=== PATIENT | female | born 1960 | race Two or more races ===

== ENCOUNTER 2024-11-02 11:30 | Emergency (ER) | payer BC, OTHER ==
[2024-11-02 11:41] VITALS: BP 129/70; PULSE 78; RESP 19; TEMP 98.2; BMI 38.7
[2024-11-02] MEDS ORDERED: METHOCARBAMOL 500 MG TABLET ONE (13:26)
[2024-11-02] MEDS ORDERED: ACETAMINOPHEN 500 MG TABLET (FP) ONE (13:26)
[2024-11-02] MEDS ORDERED: LIDOCAINE 5% TOPICAL PATCH ONE (13:28)
[2024-11-02] MEDS: LIDOCAINE 5% TOPICAL PATCH TP ONE (13:33)
[2024-11-02] MEDS: ACETAMINOPHEN 500 MG TABLET (FP) PO ONE (13:33)
[2024-11-02] MEDS: METHOCARBAMOL 500 MG TABLET PO ONE (13:33)
[2024-11-02 13:38] LABS: EPI CELLS 4 /uL (0-25.1); HYALINE CASTS 0 /uL (0-3.1); URINE BACTERIA 1 /uL (0-1359); URINE BILIRUBIN NEGATIVE (NEGATIVE); URINE COLOR YELLOW; URINE GLUCOSE (UA) NEGATIVE (NEGATIVE); URINE KETONE NEGATIVE (NEGATIVE); URINE LEUK ESTERASE TRACE (NEGATIVE); URINE NITRITE NEGATIVE (NEGATIVE); URINE PROTEIN NEGATIVE (NEGATIVE); URINE RBC 49 /uL (0-23.9); URINE UROBILINOGEN 0.2 mg/dL (0.2-1.0); URINE WBC 10 /uL (0-25.8)
[2024-11-02 13:55] LABS: URINE APPEARANCE CLEAR
[2024-11-02] MEDS ORDERED: LIDOCAINE PATCH REMOVAL MC SCH (22:00)
== END 2024-11-02 17:50 | disposition home or self-care (01) ==
LOC: JERFT 11:30
DX: M54.50 Low back pain, unspecified (principal); K57.30 Diverticulosis of large intestine without perforation or abscess without bleeding
CPT/HCPCS: 72100-TC-FY; 74176-TC; 81003; 87086; 99285-25